=== PATIENT | female | born 1975 | race Caucasian/White ===

== ENCOUNTER 2022-05-15 10:04 | Emergency (ER) | payer MEDICAID, OTHER ==
[~2022-05-15] VITALS: Ht 154.9 cm; Wt 55.5 kg
[2022-05-15 10:23] VITALS: BP 115/68
[2022-05-15] MEDS ORDERED: ketorolac trometh. 30mg/ml inj. IM ONE (11:45)
== END 2022-05-15 12:32 | disposition home or self-care (01) ==
LOC: ER 10:05
DX: M54.50 Low back pain, unspecified (principal); R39.15 Urgency of urination; Z88.8 Allergy status to other drugs, medicaments and biological substances
CPT/HCPCS: 96372; 99283; J1885

== ENCOUNTER 2022-05-19 21:24 | Emergency (ER) | payer SELFPAY ==
--- NOTE | 2022-05-19 21:38 | NUR ---
PATIENT LEFT UPSET PRIOR TO TRIAGE BEING COMPLETE, PT HERE FOR LOW BACK PAIN, HO FROM [place]UR[place], SHE ARRIVED IN TRIAGE UPSET BECAUSE "THEY DID NOTHING BUT GIVE ME A TORADOL SHOT." I THEN EXPLAINED REASONABLE EXPECTATIONS FOR BACK PAIN TREATMENT IN THE ED AND THE CRITERIA FOR A SIGNIFICANT BACK PAIN WORK UP. PATIENT CONTINOUSLY DISCUSSED A PREVIOUS DIAGNOSIS AND HOW SHE HAS A LAWSUIT GOING FOR NOT BEING TAKEN SERIOUSLY, PATIENT NOT ASSISTING IN FINISHING TRIAGE AND WOULD ONLY FOCUS ON PREVIOUS SITUATION, I RESPECTFULLY REQUESTED THAT WE STOP DISCUSSING THE LAWSUIT IT DOES NOT HELP HER CARE TONIGHT, PT STILL CONTINUED DISCUSSING IT. I CONTINUED TO DECLINE TO DISCUSS HER PRIOR ISSUE AND PATIENT LEFT OUT OF TRIAGE.
== END 2022-05-19 21:43 | disposition left against medical advice (07) ==
LOC: ER 21:25
DX: M54.50 Low back pain, unspecified (principal); Z53.21 Procedure and treatment not carried out due to patient leaving prior to being seen by health care provider

== ENCOUNTER 2024-03-15 00:24 | Emergency (ER) | payer OTHER ==
[~2024-03-15] VITALS: Ht 154.9 cm; Wt 56.0 kg
[2024-03-15] MEDS: meclizine 12.5mg tablet PO ONE (02:57)
[2024-03-15] MEDS ORDERED: iohexol 350MG/ML 100ml bottle IV ONE (02:57)
[2024-03-15] MEDS: LORazepam 2 mg/ml vial IV ONE (02:57)
[2024-03-15] MEDS: ondansetron/PF 4mg/2ml inj IV ONE (02:57)
[2024-03-15 03:05] LABS: BASOPHILS # (AUTO) 0.1 X10'3 (0-0.2); BASOPHILS % (AUTO) 0.5 % (0-1); EOSINOPHILS # (AUTO) 0.3 X10'3 (0-0.9); EOSINOPHILS % (AUTO) 2.4 % (0-6); HEMATOCRIT 41.8 % (35.0-45.0); HEMOGLOBIN 13.9 g/dl (12.0-16.0); LYMPHOCYTES # (AUTO) 4.5 X10'3 (1.1-4.8); LYMPHOCYTES % (AUTO) 39.2 % (21-51); MEAN CORPUSCULAR HEMOGLOBIN 32.9 PG (27.0-31.0); MEAN CORPUSCULAR HGB CONC 33.2 g/dL (33.0-36.5); MEAN CORPUSCULAR VOLUME 99.1 FL (78-98); MEAN PLATELET VOLUME 8.1 FL (7.4-10.4); MONOCYTES # (AUTO) 0.9 X10'3 (0-0.9); MONOCYTES % (AUTO) 7.6 % (2-12); NEUTROPHILS # (AUTO) 5.7 X10'3 (1.8-7.7); NEUTROPHILS % (AUTO) 50.3 % (42-75); PLATELET COUNT 231 X10'3 (140-440); RED BLOOD COUNT 4.22 X10'6 (4.20-5.60); RED CELL DISTRIBUTION WIDTH 12.9 % (11.5-14.5); WHITE BLOOD COUNT 11.4 X10'3 (4.5-11.0)
[2024-03-15 03:14] LABS: ALANINE AMINOTRANSFERASE 41 U/L (12-78); ALBUMIN 4.1 G/DL (3.4-5.0); ALBUMIN/GLOBULIN RATIO 1.1 (1.1-1.5); ALKALINE PHOSPHATASE 84 IU/L (46-116); ANION GAP 7 (8-16); ASPARTATE AMINO TRANSFERASE 27 U/L (10-37); BILIRUBIN,TOTAL 0.5 MG/DL (0.1-1.0); BLOOD UREA NITROGEN 8 MG/DL (7-18); BUN/CREATININE RATIO 13.6 (10.0-20.0); CHLORIDE 104 MMOL/L (99-107); CREATININE 0.59 MG/DL (0.40-0.90); GLUCOSE 94 MG/DL (70-104); POTASSIUM 3.5 MMOL/L (3.5-5.1); SODIUM 138 MMOL/L (135-145); TOTAL PROTEIN 7.8 G/DL (6.4-8.2); eCRCL 90 ML/MIN; eGFR > 90 ML/MIN
[2024-03-15 04:40] LABS: BILIRUBIN,URINE NEGATIVE (Neg); CLARITY,URINE CLEAR (Clear); COLOR,URINE YELLOW (Yellow); GLUCOSE, URINE NEGATIVE (Neg); KETONES,URINE NEGATIVE (Neg); LEUKOCYTE ESTERASE ,URINE NEGATIVE (Neg); NITRITES, URINE NEGATIVE (Neg); OCCULT BLOOD,URINE TRACE-INTACT (Neg); PH,URINE 5.5 (4.8-8.0); PROTEIN,URINE NEGATIVE (Neg); UROBILINOGEN,URINE 0.2 E.U/dL (0.2-1.0)
[2024-03-15 04:43] LABS: UA COLLECTION TYPE CLN CATCH MIDSTREAM
[2024-03-15 04:46] LABS: BACTERIA,URINE NONE SEEN /HPF (Neg); MUCUS STRANDS NONE SEEN /LPF (Neg); RBC,URINE 0-2 /HPF (0-2); SQUAMOUS EPITHELIAL CELL,UR NONE SEEN /LPF (FEW); WBC,URINE 0-4 /HPF (0-4)
[2024-03-15] MEDS ORDERED: ONDA4TAB12 PO (05:01)
[2024-03-15] MEDS ORDERED: MECL-302 PO (05:01)
[2024-03-15 05:34] VITALS: BP 141/73; PULSE 73; RESP 16; TEMP 98.6; O2SAT 98
== END 2024-03-15 05:35 | disposition home or self-care (01) ==
LOC: ER 00:25
DX: R42 Dizziness and giddiness (principal); Z88.0 Allergy status to penicillin; Z98.890 Other specified postprocedural states
CPT/HCPCS: 36415; 70450; 70496; 70498; 71045; 80053; 81001; 82948; 84484; 85025; 93005; 96374; 96375; 99285; J2060; J2405; J3490; J8597; Q9967

== ENCOUNTER 2024-07-19 09:37 | Emergency (ER) | payer OTHER ==
[~2024-07-19] VITALS: Ht 154.9 cm; Wt 57.0 kg
[~2024-07-19 09:37] MED LIST: MECL-302 PO; ONDA-243 PO
[2024-07-19 10:20] LABS: BASOPHILS # (AUTO) 0.1 X10'3 (0-0.2); BASOPHILS % (AUTO) 0.6 % (0-1); EOSINOPHILS # (AUTO) 0.2 X10'3 (0-0.9); EOSINOPHILS % (AUTO) 1.7 % (0-6); HEMATOCRIT 42.9 % (35.0-45.0); HEMOGLOBIN 14.6 g/dl (12.0-16.0); LYMPHOCYTES # (AUTO) 2.7 X10'3 (1.1-4.8); MEAN CORPUSCULAR HEMOGLOBIN 33.9 PG (27.0-31.0); MEAN CORPUSCULAR HGB CONC 34.1 g/dL (33.0-36.5); MEAN CORPUSCULAR VOLUME 99.4 FL (78-98); MEAN PLATELET VOLUME 7.6 FL (7.4-10.4); MONOCYTES # (AUTO) 0.7 X10'3 (0-0.9); MONOCYTES % (AUTO) 8.2 % (2-12); NEUTROPHILS # (AUTO) 5.1 X10'3 (1.8-7.7); NEUTROPHILS % (AUTO) 58.5 % (42-75); PLATELET COUNT 275 X10'3 (140-440); RED BLOOD COUNT 4.31 X10'6 (4.20-5.60); RED CELL DISTRIBUTION WIDTH 13.3 % (11.5-14.5); WHITE BLOOD COUNT 8.7 X10'3 (4.5-11.0)
[2024-07-19 10:30] LABS: BILIRUBIN,URINE NEGATIVE (Neg); CLARITY,URINE CLEAR (Clear); COLOR,URINE YELLOW (Yellow); GLUCOSE, URINE NEGATIVE (Neg); KETONES,URINE NEGATIVE (Neg); LEUKOCYTE ESTERASE ,URINE NEGATIVE (Neg); NITRITES, URINE NEGATIVE (Neg); OCCULT BLOOD,URINE NEGATIVE (Neg); PROTEIN,URINE NEGATIVE (Neg); URINE HCG NEGATIVE (NEG)
[2024-07-19 10:46] LABS: UA COLLECTION TYPE CLN CATCH MIDSTREAM
[2024-07-19 10:46] LABS: ALANINE AMINOTRANSFERASE 43 U/L (12-78); ALBUMIN 4.1 G/DL (3.4-5.0); ALBUMIN/GLOBULIN RATIO 1.2 (1.1-1.5); ALKALINE PHOSPHATASE 69 IU/L (46-116); AMYLASE 38 U/L (25-115); ANION GAP 10 (8-16); ASPARTATE AMINO TRANSFERASE 33 U/L (10-37); BILIRUBIN,TOTAL 0.7 MG/DL (0.1-1.0); BLOOD UREA NITROGEN 13 MG/DL (7-18); BUN/CREATININE RATIO 21.3 (10.0-20.0); CALCIUM 9.2 MG/DL (8.5-10.1); CHLORIDE 102 MMOL/L (99-107); CREATININE 0.61 MG/DL (0.40-0.90); GLUCOSE 94 MG/DL (70-104); LIPASE 30 U/L (16-77); POTASSIUM 3.4 MMOL/L (3.5-5.1); SODIUM 139 MMOL/L (135-145); TOTAL CARBON DIOXIDE 26.8 MMOL/L (24-32); TOTAL PROTEIN 7.6 G/DL (6.4-8.2); eCRCL 87 ML/MIN; eGFR > 90 ML/MIN
[2024-07-19 10:52] LABS: BETA HCG,QUANTITATIVE < 1.0 mIU/ml
[2024-07-19 12:02] VITALS: BP 101/79; PULSE 71; RESP 16; TEMP 97.8; O2SAT 99
== END 2024-07-19 12:04 | disposition home or self-care (01) ==
LOC: ER 09:38
DX: R10.32 Left lower quadrant pain (principal); Z88.8 Allergy status to other drugs, medicaments and biological substances; Z79.899 Other long term (current) drug therapy
CPT/HCPCS: 36415; 74176; 80053; 81003; 81025; 82150; 83690; 84702; 85025; 99285